=== PATIENT | male | born 1975 | race Two or more races ===

== ENCOUNTER → 2021-07-29 | Outpatient (CLI) | payer OTHER ==
--- NOTE | 2021-07-29 16:50 | RAD ---
EXAM: Neck sonogram. HISTORY: Neck lump. TECHNIQUE: Sonographic imaging of the neck at the site of palpable concern was performed. COMPARISON: None. FINDINGS: There is a 1.1 cm lymph node with thin cortex and fatty hilum within the submandibular justino on at the midline, consistent with a lymph node. This corresponds with the site of palpable concern. IMPRESSION: 1.1 cm benign-appearing lymph node within the midline submandibular soft tissues at the s ite of palpable concern. Electronically signed by: Daria Marte MD (07/29/2021 4:48 PM) [id number]
== END ==
LOC: US 15:46
PROVIDERS: ATTEND Family Medicine
DX: R22.1 Localized swelling, mass and lump, neck (principal)
CPT/HCPCS: 76536